=== PATIENT | female | born 1995 | race Two or more races ===

== ENCOUNTER 2018-08-20 04:05 | Emergency (ER) | payer MEDICARE ==
[~2018-08-20] VITALS: Ht 149.9 cm; Wt 51.3 kg
[2018-08-20 04:12] VITALS: Ht 149.9 cm; Wt 51.3 kg
[2018-08-20 05:07] VITALS: BP 118/75
== END 2018-08-20 05:07 | disposition home or self-care (01) ==
LOC: ED 04:05
DX: N39.0 Urinary tract infection, site not specified (principal)